=== PATIENT | male | born 1955 | race Caucasian/White ===

== ENCOUNTER 2016-10-04 07:39 | Emergency (ER) | payer BC ==
[~2016-10-04] VITALS: Ht 190.5 cm; Wt 129.2 kg
[2016-10-04 08:46] LABS: HEMATOCRIT 43.7 % (38.0-50.0); MCH 30.4 PG (29.0-34.0); MCHC 34.6 G/DL (30.0-36.0); MCV 88.1 FL (86-99); MEAN PLAT.VOLUME 10.6 uM^3 (9.0-12.4); PLATELET COUNT 205 K/uL (156-360); RBC DIS.WIDTH-CV 12.4 % (11.8-14.6); RED BLOOD COUNT 4.96 M/uL (4.00-5.50); WHITE BLOOD COUNT 6.4 K/uL (4.1-10.2)
[2016-10-04 09:05] LABS: TROP-I INTERPRETATION NEGATIVE; TROPONIN-I < 0.01 ng/mL (0.0-0.30)
[2016-10-04 09:07] LABS: CHLORIDE 108 mEq/L (99-109); POTASSIUM 3.8 mEq/L (3.7-5.4); SODIUM 140 mEq/L (136-147)
[2016-10-04 09:09] LABS: GLUCOSE 110 mg/dL (70-99)
[2016-10-04 09:10] LABS: ANION GAP 6 MEQ/L (2-14)
[2016-10-04 09:13] LABS: GFR ESTIMATE (CALCULATED) > 59 mL/min/
[2016-10-04 09:14] LABS: UREA NITROGEN (BUN) 18 mg/dL (9-23)
[2016-10-04 12:40] LABS: TROP-I INTERPRETATION NEGATIVE; TROPONIN-I < 0.01 ng/mL (0.0-0.30)
[2016-10-04 13:29] VITALS: BP 132/81
== END 2016-10-04 13:30 | disposition home or self-care (01) ==
LOC: EME 07:39
PROVIDERS: Emergency Medicine
DX: R07.89 Other chest pain (principal)
CPT/HCPCS: 71020; 80048; 84484; 85027; 93005; 99281; 99284